=== PATIENT | male | born 1965 | race Asian ===

== ENCOUNTER 2019-01-30 10:02 | Day surgery (SDC) | payer OTHER | END 2019-01-30 14:57 | disposition home or self-care (01) | LOC: GIL 10:02 | DX: Z12.11 Encounter for screening for malignant neoplasm of colon (principal); K21.9 Gastro-esophageal reflux disease without esophagitis; I10 Essential (primary) hypertension; E11.9 Type 2 diabetes mellitus without complications; J45.909 Unspecified asthma, uncomplicated | CPT/HCPCS: 43239; 82962; 88305 ==